=== PATIENT | male | born 1960 | race African-American/Black ===

== ENCOUNTER 2018-03-08 08:49 | Emergency (ER) | payer SELFPAY ==
[~2018-03-08] VITALS: Ht 177.8 cm; Wt 69.0 kg
[2018-03-08] MEDS ORDERED: ATEN50TA PO (08:58)
[2018-03-08] MEDS ORDERED: HYDR25TA PO (08:58)
[2018-03-08] MEDS ORDERED: ACETAMINOPHEN 325MG TABLET PO ONE (10:00)
[2018-03-08 10:56] VITALS: BP 109/85
== END 2018-03-08 10:57 | disposition home or self-care (01) ==
LOC: ER 08:49
DX: S90.112A Contusion of left great toe without damage to nail, initial encounter (principal); I10 Essential (primary) hypertension; F17.200 Nicotine dependence, unspecified, uncomplicated; Z98.890 Other specified postprocedural states; W22.8XXA Striking against or struck by other objects, initial encounter; Y93.89 Activity, other specified; Y92.018 Other place in single-family (private) house as the place of occurrence of the external cause
CPT/HCPCS: 73660; 99284; Z7610